=== PATIENT | female | born 1995 | race Caucasian/White ===

== ENCOUNTER 2016-08-25 11:42 | Emergency (ER) | payer OTHER ==
[2016-08-25 12:55] VITALS: BP 139/73
[2016-08-25] MEDS ORDERED: cefTRIAXone VIAL(*) 250 MG VIAL IM ONE (14:03)
[2016-08-25] MEDS ORDERED: Azithromycin TAB* 250 MG PO ONE (14:04)
[2016-08-25] MEDS ORDERED: Lidocaine 1% MPF* 2 ML VIAL ONE (14:09)
--- NOTE | 2016-08-25 14:22 | UC ---
Complaint Female HPI - HPI Summary HPI Summary: RECENT UNPROTECTED SEX WITH SUSPECTED CHLAMYDIA CARRIER. HAS IUD PLACED SEVERAL MONTHS AGO, TESTED POSITIVE FOR CHLAMYDIA AFTER SEX WITH POSSIBLE CARRYING PERSON. RECENTLY HAD SEX WITH SAME PERSON AGAIN. LATELY FEELS VAGINAL ITCHINESS. WOULD LIKE URINE TEST ONLY. REFUSED HIV. REFUSES ANY OTHER TESTING. REFUSES PELVIC EXAM. - History Of Current Complaint Chief Complaint: UCGU Stated Complaint: STD TESTING Time Seen by Provider: 08/25/16 13:39 Hx Obtained From: Patient Hx Last Menstrual Period: June 2016 Onset/Duration: Gradual Onset, Lasting Days, Still Present Timing: Intermittent Severity Initially: Mild Severity Currently: Mild Character: Dull Aggravating Factor(s): Nothing Associated Signs And Symptoms: Positive: Vaginal Discharge - NO DISCHARGE, ONLY VAGINAL IRRITATION. Negative: Fever, Back Pain, Vaginal Bleeding/Discharge, Nausea, Vomiting(# Of Episodes =), Genital Swelling, Genital Blisters - Risk Factors Ectopic Risk Factor: Negative - Allergies/Home Medications Allergies/Adverse Reactions: Allergies Allergy/AdvReac Type Severity Reaction Status Date / Time No Known Allergies Allergy Verified 08/25/16 12:56 Home Medications: Home Medications Amphetamine-Dextroamphetamine [Adderall Xr 10 mg-] 08/25/16 [History Confirmed 08/25/16] PMH/Surg Hx/FS Hx/Imm Hx Previously Healthy: Yes Cardiovascular History Of: Denies: Pacemaker/ICD Respiratory History Of: Reports: Asthma - exercise induced - Surgical History Surgical History: Yes Surgery Procedure, Year, and Place: appendectomy - Family History Known Family History: Negative: Renal Disease - Social History Occupation: Student Lives: With Family Alcohol Use: Occasionally Substance Use Type: None Smoking Status (MU): Never Smoked Tobacco Have You Smoked in the Last Year: No Review of Systems Constitutional: Negative Skin: Negative Eyes: Negative ENT: Negative Respiratory: Negative Cardiovascular: Negative Gastrointestinal: Negative Genitourinary: Other - VAGINAL IRRITATION, SEX WITH PARTNER SUSPECTED TO HAVE GC /CHLAMYDIA Motor: Negative Neurovascular: Negative Musculoskeletal: Negative Neurological: Negative Psychological: Negative All Other Systems Reviewed And Are Negative: Yes Physical Exam Triage Information Reviewed: Yes Appearance: Well-Appearing, No Pain Distress, Well-Nourished Vital Signs: Initial Vital Signs Temp 97.0 F 08/25/16 12:50 Pulse 105 08/25/16 12:50 Resp 18 08/25/16 12:50 BP 139/73 08/25/16 12:50 Pulse Ox 100 08/25/16 12:50 Vital Signs Reviewed: Yes Eye Exam: Normal ENT Exam: Normal ENT: Positive: Normal ENT inspection, TMs normal Dental Exam: Normal Neck exam: Normal Neck: Positive: Supple, Nontender, No Lymphadenopathy Respiratory Exam: Normal Respiratory: Positive: Chest non-tender, Lungs clear, Normal breath sounds, No respiratory distress Cardiovascular Exam: Normal Cardiovascular: Positive: RRR, No Murmur, Pulses Normal Abdominal Exam: Normal Abdomen Description: Positive: Nontender - ABDOMEN NONTENDER, No Organomegaly, Soft Musculoskeletal Exam: Normal Neurological Exam: Normal Psychological Exam: Normal Psychological: Positive: Normal Response To Family Skin Exam: Normal Complaint Female Dx - Course Course Of Treatment: PATIENT REFUSED PELVIC EXAM. PATIENT REFUSED HIV OR ANY OTHER STD TESTING - Differential Dx/Diagnosis Differential Diagnosis/HQI/PQRI: , Sexually Transmitted Disease, Urinary Tract Infection Provider Diagnoses: SUSPECTED STD: GC/CHAMYDIA Discharge - Discharge Plan Condition: Stable Disposition: HOME Patient Education Materials: Chlamydia (ED), Sexually Transmitted Diseases (ED) , Gonorrhea (ED) Referrals: [facility] KARI Guo [Primary Care Provider] -
== END 2016-08-25 14:25 | disposition home or self-care (01) ==
LOC: UCEAST 11:42
DX: L29.2 Pruritus vulvae (principal); Z20.2 Contact with and (suspected) exposure to infections with a predominantly sexual mode of transmission
CPT/HCPCS: 87491; 87591; 96372; 99212; A9270-GY; G0463; J0696

== ENCOUNTER 2016-09-13 12:54 | Emergency (ER) | payer OTHER ==
[2016-09-13 14:59] VITALS: BP 132/90
--- NOTE | 2016-09-13 15:49 | UC ---
Seizure HPI - HPI Summary HPI Summary: The patient comes in today for: 1. She comes in today for loss of consciousness/seizure: Onset: 7 days ago. Palliative/provocative: Possibly alcohol Quality: No pain except her right shoulder but she is not wanting us to address it. Region: Right shoulder, [employer]. Severity: Only with movement is there pain. 0/10 with rest. Associated symptoms: Event: She was in [place] on spring, and went into a restaurant. She does not remember all that happened. She stated that the only thing that she remembers is walking into the restaurant. She remembered picking a seat and that is the last thing she remembers. The rest of this history comes from those attending the dinner. Immediately after sitting down (no food, no alcohol at the restaurant), she was reported to have stood up and was "reaching for something." It "looked like she "tripped" but later this was thought to be due to her fainting. When she fainted, she hit her left mandible on the dinner table and then fell to her right hitting the floor and a "bruise" on the posterior right head. After she was on the floor, she stated she was told that she had a seizure. There was an Hungarian doctor at the restaurant who thought she had seizure activity. This "seizure" lasted for 30 seconds, and it was thought that all her limbs were moving. She was unresponsive for 2 minute after. The Hungarian doctor put her on her side. Then she started to wake up. At this point, she is a bit unclear, but she states that a friend who was facing her closely told her that an ambulance was on the way. She was confused. She does not remember that she was particularly tired or sleep. She did have a bite thony on her right tongue. She did not have any incontinence. [place] [facility] [place] [facility]. In the ambulance, she got oxygen and got an IV. During her ambulance ride, she started to wake up. She got Keppra through the IV. Her family did not want any further evaluation. She basically had an uneventful history from now and then. She was prescribed Keppra from [facility], but her father called his friend and told her to not take it. She was in [facility] 4 days before this "seizure." She had 10 drinks/day-mixed drinks. She has had a history of blackouts. She first noticed these blackouts initially "early in college." She had stopped drinking about 19 hours before the seizure. She has never had any fainting or seizures. At this time, she is feeling fine. She has a history of being on Adderall which she has used periodically. She did not bring her Adderall on her spring break. Head injury: She only had a "minor concussion" in the fall of 2014. No fevers, and no neurologic diseases. * - History Of Current Complaint Chief Complaint: UCSeizure Stated Complaint: SEIZURE 1 WEEK AGO Time Seen by Provider: 09/13/16 15:19 Hx Obtained From: Patient Hx Last Menstrual Period: IUD placed Jul 2016 ?: No - Allergies/Home Medications Allergies/Adverse Reactions: Allergies Allergy/AdvReac Type Severity Reaction Status Date / Time No Known Allergies Allergy Verified 09/13/16 14:46 Home Medications: Home Medications Temazepam [Restoril] 30 mg PO BEDTIME PRN 09/13/16 [History Confirmed 09/13/16] PMH/Surg Hx/FS Hx/Imm Hx Previously Healthy: No - ADHD, "abnormal EKG." Endocrine History Of: Denies: Diabetes, Thyroid Disease, Hyperthyroidism, Hypothyroidism, Dyslipidemia Cardiovascular History Of: Reports: Cardiac Disorders - Abnormal EKG--type of abnormality is unknown. Denies: Hypertension, Pacemaker/ICD, Myocardial Infarction, Congestive Heart Failure, Atrial Fibrillation, Deep Vein Thrombosis, Bleeding Disorders Respiratory History Of: Reports: Asthma - sports induced Denies: COPD, Bronchitis, Pneumonia, Pulmonary Embolism GI/ History Of: Denies: Gastroesophageal Reflux, Ulcer, Gastrointestinal Bleed, Gall Bladder Disease, Kidney Stones, Diverticulitis, Renal Disease, Urosepsis Neurological History Of: Reports: Seizures Denies: TIA, CVA, Dementia, Migraine Psychological History Of: Reports: Anxiety - On Restoril for this and sleep. Denies: Depression, Bipolar Disorder, Schizophrenia, Post Traumatic Stress Disorder Cancer History Of: Denies: Lung Cancer, Colorectal Cancer, Breast Cancer, Prostate Cancer, Cervical Cancer Other History Of: Negative For: HIV, Hepatitis B, Hepatitis C, Anticoagulant Therapy - Surgical History Surgical History: Yes Surgery Procedure, Year, and Place: appendectomy - Family History Known Family History: Negative: Renal Disease - Social History Alcohol Use: Occasionally Substance Use Type: None Smoking Status (MU): Never Smoked Tobacco Have You Smoked in the Last Year: No - Immunization History Most Recent Influenza Vaccination: none Review of Systems Constitutional: Negative Skin: Negative Eyes: Negative ENT: Negative Respiratory: Negative Cardiovascular: Negative Gastrointestinal: Negative Genitourinary: Negative All Other Systems Reviewed And Are Negative: Yes Physical Exam Triage Information Reviewed: Yes Appearance: Well-Appearing, No Pain Distress, Well-Nourished Vital Signs: Initial Vital Signs Temp 99.2 F 09/13/16 14:48 Pulse 80 09/13/16 14:48 Resp 16 09/13/16 14:48 BP 132/90 09/13/16 14:48 Pulse Ox 99 09/13/16 14:48 Vital Signs Reviewed: Yes Eyes: Positive: Conjunctiva Clear. Negative: Discharge ENT: Positive: Hearing grossly normal. Negative: Pharyngeal erythema, Nasal congestion, Nasal drainage, TM bulging, TM dull, TM red, Tonsillar swelling, Tonsillar exudate Dental: Negative: Gross Decay/Caries @, Dental Fracture @ Neck: Positive: Supple, Nontender, No Lymphadenopathy. Negative: Nuchal Rigidity Respiratory: Positive: Lungs clear, No respiratory distress, No accessory muscle use. Negative: Crackles, Wheezing Cardiovascular: Positive: RRR, No Murmur Abdomen Description: Positive: Nontender, No Organomegaly, Soft. Negative: Distended, Guarding Musculoskeletal: Positive: Strength Intact, ROM Intact, No Edema Neurological: Positive: Alert, Muscle Tone Normal Psychological: Positive: Age Appropriate Behavior, Consolable Skin: Negative: rashes, breakdown - Neurologic exam: Inspection: No fasciculations. Tone: No rigidity. CN II-XII: no deficit Reflexes: Upper (biceps, triceps, brachioradialis): +2/2 x 2 Lower (patellar, Achilles): +2/2 x 2 Strenth: Upper: (biceps, triceps, deltoid): Normal and symmetrical Lower: (quads, hamstrings, calf, and dorsiflexion) : Normal and symmetrical Coordination: Upper: (rapid patting of thighs including alternating, finger tips to thumbs index finger to nose): normal and symmetrical Lower: (heel up and down tyson): normal and symmetrical Rhomberg: Normal Gait: Normal. Seizure Course/Dx - Course Course Of Treatment: Patient was told that her seizure sounded to me to be more an alcohol withdrawal seizure and recommended no alcohol at this time until she sees a neurologist. - Differential Dx/Diagnosis Provider Diagnoses: Seizure (alcohol withdrawal). Discharge - Discharge Plan Condition: Stable Disposition: HOME Patient Education Materials: New-Onset Seizure in Adults (ED), Alcohol Withdrawal (ED) Referrals: [facility] KARI Guo [Primary Care Provider] - Bk Bowman MD [Medical Doctor] - As Soon As Possible (Please call Dr. Bowman's office for a follow-up appointment on your seizures. If you have any more, please go to the ER. Stay off alcohol. )
== END 2016-09-13 16:38 | disposition home or self-care (01) ==
LOC: UCEAST 12:54
DX: G40.909 Epilepsy, unspecified, not intractable, without status epilepticus (principal); F10.239 Alcohol dependence with withdrawal, unspecified; F90.9 Attention-deficit hyperactivity disorder, unspecified type; R94.31 Abnormal electrocardiogram [ECG] [EKG]; F41.9 Anxiety disorder, unspecified
CPT/HCPCS: 99211; G0463